=== PATIENT | male | born 1960 | race African-American/Black ===

== ENCOUNTER 2023-06-03 13:32 | Inpatient (IN) | payer OTHER ==
[2023-06-03] MEDS ORDERED: Ondansetron PF 4 MG/2 ML Vial IVP PRN (18:57)
[2023-06-03] MEDS ORDERED: Ondansetron ODT 4 MG TAB PO PRN (18:57)
[2023-06-03] MEDS ORDERED: Labetalol HCl 100 MG/20 ML VIAL SLOW IVP SCH (19:00)
[2023-06-03] MEDS ORDERED: Electrolyte Replacement Protocol 1 EACH FS SCH (19:15)
[2023-06-03 19:30] VITALS: BMI 21.8
[2023-06-03 19:48] LABS: Magnesium 1.9 mg/dL (1.6-2.6)
[2023-06-03] MEDS: Acetaminophen 325 MG TAB PO PRN (20:09)
[2023-06-03] MEDS ORDERED: Magnesium 2 GM/50 ML(in water) 2 GM in Premix Bag 1 BAG IVPB SCH (20:15)
[2023-06-03 22:56] LABS: Creatinine, Urine 42.97 mg/dL (63-166)
[2023-06-03 22:59] LABS: Microalbumin Urine 131.7 mg/dL (0.5-50.0); Microalbumin/Creat Ratio 3064.9 mg/g (Less than 30)
[2023-06-04] MEDS: Acetaminophen 325 MG TAB PO PRN (02:06)
[2023-06-04 04:01] LABS: #Monocytes 0.5 thou/uL (0.11-0.59); %Basophils 0.2 % (0.0-1.0); %Eosinophils 0.4 % (0.0-10.0); %Lymphocytes 15.6 % (21.0-51.0); %Monocytes 8.5 % (0.0-10.0); %Neutrophils 74.9 % (42.0-75.0); Hematocrit 33.8 % (42.0-52.0); Hemoglobin 10.4 g/dL (14.0-18.0); Mean Corpuscular HGB CONC 30.8 g/dL (32.0-36.0); Mean Corpuscular Hemoglobin 26.3 pg (27.0-31.0); Mean Corpuscular Volume 85.4 fl (78.0-98.0); Mean Platelet Volume 12.1 fL (7.4-10.4); Platelet Count 144 10x3/uL (130-400); Red Blood Cell (RBC) Count 3.96 mill/uL (4.70-6.10); White Blood Cell (WBC) Count 5.3 10x3/uL (4.8-10.8)
[2023-06-04 04:27] LABS: Hemoglobin A1c 5.8 % (4.0-6.0)
[2023-06-04 04:31] LABS: Anion Gap 11 mmol/L (10-20); BUN (Urea Nitrogen) 19 mg/dL (8.4-25.7); Calc. Creatinine Clearance 59 mL/min (70-130); Calcium 8.4 mg/dL (7.8-10.44); Carbon Dioxide 26 mmol/L (23-31); Cardiac Risk 5.3 (Less than 4.5); Chloride 104 mmol/L (98-107); Cholesterol 205 mg/dl (< 200 Desired); Estimated GFR 70; Glucose 112 mg/dL (80-115); HDL Cholesterol 39 mg/dL (>60 Neg Risk); LDL Cholesterol, Calculated 139 mg/dL; Potassium 4.2 mmol/L (3.5-5.1); Sodium 137 mmol/L (136-145); Triglycerides 133 mg/dL (Less than 150)
[2023-06-04] MEDS: Furosemide 40 MG/4 ML VIAL SLOW IVP SCH ×2 (05:31→15:10)
[2023-06-04] MEDS: Lisinopril 10 MG TAB PO SCH (10:04)
[2023-06-04] MEDS: Aspirin Chewable 81 MG TAB PO SCH (10:05)
[2023-06-04] MEDS: Atorvastatin Calcium 20 MG TAB PO SCH (22:23)
[2023-06-05 01:46] LABS: Phosphorus 4.9 mg/dL (2.3-4.7)
[2023-06-05] MEDS: Furosemide 40 MG/4 ML VIAL SLOW IVP SCH ×2 (05:57→13:49)
[2023-06-05] MEDS ORDERED: Electrolyte Replacement Protocol FS PRN (06:30)
[2023-06-05] MEDS ORDERED: Magnesium 2 GM/50 ML(in water) 2 GM in Premix Bag 1 BAG IVPB SCH (06:30)
[2023-06-05] MEDS: Aspirin Chewable 81 MG TAB PO SCH (08:55)
[2023-06-05] MEDS: Lisinopril 10 MG TAB PO SCH (08:55)
[2023-06-05] MEDS ORDERED: Carvedilol 3.125 MG TAB PO SCH ×2 (10:23→17:00)
[2023-06-05] MEDS ORDERED: Lisinopril 10 MG TAB PO SCH (12:15)
[2023-06-05] MEDS: Carvedilol 6.25 MG TAB PO SCH (19:05)
[2023-06-05] MEDS: Atorvastatin Calcium 20 MG TAB PO SCH (21:05)
[2023-06-05 22:48] LABS: Anion Gap 12 mmol/L (10-20); BUN (Urea Nitrogen) 28 mg/dL (8.4-25.7); Calc. Creatinine Clearance 46 mL/min (70-130); Calcium 8.6 mg/dL (7.8-10.44); Carbon Dioxide 25 mmol/L (23-31); Chloride 99 mmol/L (98-107); Estimated GFR 55; Glucose 79 mg/dL (80-115); Potassium 3.9 mmol/L (3.5-5.1); Sodium 132 mmol/L (136-145)
[2023-06-06 05:00] LABS: #Monocytes 0.7 thou/uL (0.11-0.59); #Neutrophils 2.5 thou/uL (1.40-6.50); %Basophils 0.5 % (0.0-1.0); %Eosinophils 0.7 % (0.0-10.0); %Monocytes 16.7 % (0.0-10.0); %Neutrophils 59.4 % (42.0-75.0); Mean Corpuscular HGB CONC 31.3 g/dL (32.0-36.0); Mean Corpuscular Hemoglobin 26.4 pg (27.0-31.0); Mean Corpuscular Volume 84.4 fl (78.0-98.0); Mean Platelet Volume 12.3 fL (7.4-10.4); Platelet Count 139 10x3/uL (130-400); RBC Distribution Width 14.9 % (11.5-14.5); Red Blood Cell (RBC) Count 3.79 mill/uL (4.70-6.10); White Blood Cell (WBC) Count 4.1 10x3/uL (4.8-10.8)
[2023-06-06 05:27] LABS: Magnesium 2.1 mg/dL (1.6-2.6)
[2023-06-06] MEDS: Furosemide 40 MG/4 ML VIAL SLOW IVP SCH (06:08)
[2023-06-06] MEDS: Lisinopril 20 MG TAB PO SCH (09:41)
[2023-06-06] MEDS: Carvedilol 6.25 MG TAB PO SCH (09:42)
[2023-06-06] MEDS: Aspirin Chewable 81 MG TAB PO SCH (09:42)
[2023-06-06] MEDS ORDERED: Carvedilol 6.25 MG TAB PO SCH (17:00)
[2023-06-06] MEDS: Atorvastatin Calcium 20 MG TAB PO SCH (20:08)
[2023-06-07 05:04] LABS: Phosphorus 4.7 mg/dL (2.3-4.7)
[2023-06-07 05:08] LABS: Anion Gap 11 mmol/L (10-20); BUN (Urea Nitrogen) 32 mg/dL (8.4-25.7); Calc. Creatinine Clearance 45 mL/min (70-130); Calcium 8.7 mg/dL (7.8-10.44); Carbon Dioxide 27 mmol/L (23-31); Chloride 100 mmol/L (98-107); Estimated GFR 55; Glucose 84 mg/dL (80-115); Potassium 4.7 mmol/L (3.5-5.1); Sodium 133 mmol/L (136-145)
[2023-06-07] MEDS: Furosemide 40 MG TAB PO SCH (08:08)
[2023-06-07] MEDS: Carvedilol 25 MG TAB PO SCH ×2 (08:09→16:34)
[2023-06-07] MEDS: Lisinopril 20 MG TAB PO SCH (08:09)
[2023-06-07] MEDS: Aspirin Chewable 81 MG TAB PO SCH (08:09)
[2023-06-07] MEDS ORDERED: Magnesium 2 GM/50 ML(in water) 2 GM in Premix Bag 1 BAG IVPB SCH (09:00)
[2023-06-07] MEDS: Atorvastatin Calcium 20 MG TAB PO SCH (20:24)
[2023-06-08 05:24] LABS: Magnesium 2.3 mg/dL (1.6-2.6)
[2023-06-08 08:21] VITALS: TEMP 98.1
[2023-06-08] MEDS: Furosemide 40 MG TAB PO SCH (09:08)
[2023-06-08] MEDS: Lisinopril 20 MG TAB PO SCH (09:08)
[2023-06-08] MEDS: Aspirin Chewable 81 MG TAB PO SCH (09:08)
[2023-06-08] MEDS: Carvedilol 25 MG TAB PO SCH (09:08)
[2023-06-08 11:26] VITALS: BP 132/91
== END 2023-06-08 15:20 | disposition home or self-care (01) | DRG 280 ==
LOC: 2NO 13:32 → OBSVTOIN 06-04 11:29
PROVIDERS: ADMIT Family Medicine; ATTEND Family Medicine
DX: I11.0 Hypertensive heart disease with heart failure (principal); I50.43 Acute on chronic combined systolic (congestive) and diastolic (congestive) heart failure; I21.A1 Myocardial infarction type 2; E78.5 Hyperlipidemia, unspecified; I16.0 Hypertensive urgency; R80.9 Proteinuria, unspecified; Z55.6 Problems related to health literacy; Z82.49 Family history of ischemic heart disease and other diseases of the circulatory system; Z91.148 Patient's other noncompliance with medication regimen for other reason; I08.1 Rheumatic disorders of both mitral and tricuspid valves
CPT/HCPCS: 36415; 80048; 80061; 82043; 82550; 83036; 83735; 84100; 84443; 84484; 85025; 93005; 93010; 93306; 93798; 96372; 96374; 96375; 97139; G0378; J1650; J1940; J3475